=== PATIENT | female | born 1945 | race Caucasian/White ===

== ENCOUNTER → 2017-09-17 | Outpatient (CLI) | payer MEDICARE, BC ==
[~2017-09-17] MED LIST: ALPR0.5T6 PO; ASPI-496 PO; CALC-112 PO; CHOL20002 PO; CYAN2000 PO; IBUP200C5 PO; METO50TA82 PO; TAMO20TA PO; VENL37.52 PO
== END | disposition home or self-care (01) ==
LOC: CFH 07:33
PROVIDERS: ATTEND Nurse Practitioner Family
DX: Z12.31 Encounter for screening mammogram for malignant neoplasm of breast (principal); Z85.3 Personal history of malignant neoplasm of breast; Z90.12 Acquired absence of left breast and nipple
CPT/HCPCS: 77063; 77067

== ENCOUNTER 2019-09-27 10:22 | Outpatient (CLI) | payer MEDICARE, BC ==
[~2019-09-27 10:22] MED LIST changes: -CHOL20002 PO; +CHOL200052 PO; +IBUP-1623 PO; -IBUP200C5 PO
== END 2019-09-27 23:59 | disposition home or self-care (01) ==
LOC: CFH 10:22
PROVIDERS: ATTEND Nurse Practitioner Family
DX: Z12.31 Encounter for screening mammogram for malignant neoplasm of breast (principal); N64.89 Other specified disorders of breast
CPT/HCPCS: 77067

== ENCOUNTER 2020-06-21 09:43 | Emergency (ER) | payer MEDICARE, BC ==
[~2020-06-21] VITALS: Ht 157.5 cm; Wt 72.9 kg
[2020-06-21 09:45] VITALS: BP 190/73
--- NOTE | 2020-06-21 10:52 | NUR ---
PT HAS CO LBP. DENIES NUMBNESS OR TINGLING. DENIES ANY FALLS OR INJURY. DENIES FEVERS OR INCONTINENCE. PAIN WHEN WALKING MD WHITTEN AT BEDSIDE
--- NOTE | 2020-06-21 12:37 | NUR ---
DPatient/Caregiver given discharge instructions and they have confirmed that they understand the instructions. Patient ambulatory with steady gait.
== END 2020-06-21 12:39 | disposition home or self-care (01) ==
LOC: ED 11:50
DX: G89.11 Acute pain due to trauma (principal); M54.5 Low back pain
CPT/HCPCS: 72128; 72131; 99285

== ENCOUNTER → 2020-10-10 | Outpatient (CLI) | payer MEDICARE, BC ==
[~2020-10-10] MED LIST changes: -ALPR0.5T6 PO; +ALPR0.5T93 PO
== END | disposition home or self-care (01) ==
LOC: CFH 10:24
PROVIDERS: ATTEND Nurse Practitioner Family
DX: Z12.31 Encounter for screening mammogram for malignant neoplasm of breast (principal)
CPT/HCPCS: 77063; 77067